=== PATIENT | female | born 1975 | race Caucasian/White ===

== ENCOUNTER 2022-01-30 16:10 | Emergency (ER) | payer BC, SELFPAY ==
--- NOTE | ~2022-01-30 | US_ITS ---
EXAMINATION: US SOFT TISSUE NECK CLINICAL INFORMATION: Pain below the ear COMPARISON: None TECHNIQUE: Real-time imaging by the rehabilitation services counselor. The patient directs the rehabilitation services counselor behind the ear on the left. The residential designer identifies several structures which likely represents lymph nodes. There is a 2.1 x 0.4 x 1 cm lymph node with a fatty hilum preserved. Another lymph node is seen which is less well depicted due to its depth. Measures 5 x 4 x 6 mm. A fatty hilum is not demonstrated. There is good posterior wall definition. Importantly there is no suspicious fluid collection. US/US soft tiss head and/or neck IMPRESSION: No suspicious fluid collection is seen here. Some nonpathologically enlarged lymph nodes are felt to be present. These may be reactive. Correlation recommended clinically. If further evaluation is warranted consider CT postcontrast
--- NOTE | ~2022-01-30 | CT_ITS ---
EXAMINATION: CT MAXILLOFACIAL WITHOUT CONTRAST CT INNER EAR TEMPORAL BONES WITHOUT CONTRAST CLINICAL INFORMATION: Tenderness of the left mastoid. Left maxillary pain and tenderness. COMPARISON: Soft tissue ultrasound of the left mastoid from 01/30/2022. TECHNIQUE: Multidetector helical imaging of the maxillofacial bones and temporal bones was obtained without intravenous contrast. Generation of oblique axial and coronal reformatted projections. This CT examination was performed using dose optimization techniques as appropriate, variously including the following: *Automated exposure control. *Adjustment of mA and/or kV according to patient size (this includes techniques or standardized protocols for targeted exams where dose is matched to indication/reason for exam; i.e. extremities or head). *Use of iterative reconstruction technique. DLP: 695 mGy-cm FINDINGS: FRONTAL SINUSES AND DRAINAGE PATHWAYS: The frontal sinuses are clear. The frontoethmoidal recesses are patent. MAXILLARY SINUSES AND DRAINAGE PATHWAYS: Mild mucosal thickening of the maxillary sinuses. The maxillary ostia and infundibula are patent. ETHMOID SINUSES: Mild mucosal thickening of the ethmoid air cells. The ethmoid roofs appear symmetric and intact. SPHENOID SINUS AND DRAINAGE PATHWAYS: The sphenoid sinus is clear. The sphenoethmoidal recesses are patent. The carotid canals are normally covered by bone. NASAL PASSAGE: The nasal passages are clear. The osseous nasal septum remains midline. ORBITS: Normal appearance of the osseous orbits. The lamina papyracea are intact. No significant preseptal or retrobulbar edema. Normal appearance of the globes. Normal symmetric appearance of the extraocular musculature. No abnormalities of the intraconal or extraconal adipose tissue. Normal appearance of the optic nerve sheaths. Normal appearance of the lacrimal glands. No orbital fluid collections. No abnormalities of the orbital apices. TEMPOROMANDIBULAR JOINTS: The temporomandibular joints remain well aligned. Normal appearance of the temporomandibular joints. RIGHT TEMPORAL BONE: Moderate subcutaneous edema in the retroauricular soft tissues with an apparent 1 cm lymph node. No discrete fluid collection. The external auditory canal is normal in appearance. The tympanic membrane is normal. The ossicular chain is intact. No soft tissue abnormality within the middle ear. The mastoid antrum and additional mastoid air cells remain well aerated. The sigmoid plate is intact. Normal ossification of the bony labyrinth. Normal appearance of the cochlea, vestibule, and semicircular canals. The vestibular aqueduct is normal. Normal appearance of the labyrinthine, geniculate, tympanic, and mastoid segments of the facial nerve. Normal appearance of the internal auditory canal. The cochlear aperture is normal. Normal appearance of the carotid canal and jugular foramen. LEFT TEMPORAL BONE: Mild subcutaneous edema in the retroauricular soft tissues with an apparent 0.7 cm lymph node. No discrete fluid collection. The external auditory canal is normal in appearance. The tympanic membrane is normal. The ossicular chain is intact. No soft tissue abnormality within the middle ear. The mastoid antrum and additional mastoid air cells remain well aerated. The sigmoid plate is intact. Normal ossification of the bony labyrinth. Normal appearance of the cochlea, vestibule, and semicircular canals. The vestibular aqueduct is normal. Normal appearance of the labyrinthine, geniculate, tympanic, and mastoid segments of the facial nerve. Normal appearance of the internal auditory canal. The cochlear aperture is normal. Normal appearance of the carotid canal and jugular foramen. ADDITIONAL RELEVANT FINDINGS: No evidence of maxillofacial bone fractures. The zygomatic arches remain intact. No nasal bone fracture. No evidence of mandibular or maxillary fracture. No significant maxillary/mandibular periapical disease. Limited evaluation of the intracranial structures without demonstrated significant abnormalities. There is moderate degenerative arthropathy of the atlantooccipital articulations. Advanced degenerative arthropathy of the atlantodental articulation. Fragmented ossified structures beneath the anterior arch of C1. 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 The premaxillary, retromaxillary, pterygopalatine fossa, temporal fossa, and parapharyngeal adipose tissue is maintained. No demonstrated soft tissue abnormalities within the intrinsic tissues of the tongue. CT/CT facial bones wo con IMPRESSION: 1. Mild to moderate retroauricular soft tissue edema and small lymph nodes, more notably on the right than the left. No demonstrated discrete fluid collection. 2. Mild sinonasal mucosal disease. The mastoid air cells and middle ear cavities are largely clear without overt abnormalities of the temporal bones. 3. 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
[2022-01-30 16:14] VITALS: BP 166/83; PULSE 93; RESP 18; TEMP 37; O2SAT 97; BMI 30.2
--- NOTE | 2022-01-30 18:30 | ED.GENADULT ---
HPI - General Adult General Chief complaint: General Medical Stated complaint: neck throat pain diff swallowing Time Seen by Provider: 01/30/22 17:33 Source: patient Mode of arrival: ambulatory Limitations: no limitations History of Present Illness HPI narrative: 38-year-old female presents with left-sided neck pain left ear pain, left facial swelling that started yesterday. Patient woke up yesterday, and thought she had a kink in her left side of her neck, but throughout the day became worse. Today when she woke up and went to swallow she felt like she had a dagger in her neck. Patient states when she swallows she feels like she has a shooting pain into her neck. Patient states the pain in her neck is a 5/10 and when she swallows it is an 8/10. No other upper respiratory symptoms, no runny nose, no cough, no fevers. No vomiting, diarrhea, nausea. Patient had a crown in her right upper molar 4 days ago. Related Data Allergies Allergy/AdvReac Type Severity Reaction Status Date / Time Penicillins Allergy Hives Verified 01/30/22 17:28 Review of Systems Constitutional: Constitutional: Denies body ache(s), Denies chills, Denies fatigue, Denies fever(s), Denies headache(s), Denies malaise and Denies weakness Eyes: Eyes: Denies diplopia ENT: Denies vertigo, Denies dizziness, Reports otalgia, Reports facial pain, Denies headache(s), Denies mouth pain, Reports neck pain, Reports odynophagia, Denies post nasal drip, Denies sinus pain, Reports sinus pressure, Reports sore throat and Denies throat swelling Cardiovascular: Cardiovascular: Denies chest pain, Denies syncope, Denies leg edema, Denies lightheadedness, Denies Loss of Consciousness, Denies palpitations and Denies dyspnea Respiratory: Respiratory: Denies chest congestion, Denies cough and Denies dyspnea Gastrointestinal: Gastrointestinal: Denies abdominal pain, Denies hematochezia, Denies constipation, Denies diarrhea, Denies nausea, Reports odynophagia and Denies vomiting Musculoskeletal: Musculoskeletal: Reports no additional musculoskeletal complaints and Reports neck pain Neurologic: Denies confusion, Denies vertigo, Denies dizziness, Denies syncope, Denies headache(s) and Denies weakness Psychiatric: Psychiatric: Denies anxiety, Denies confusion and Denies depression Endocrine: Endocrine: Denies fatigue and Denies palpitations Allergic/Immunologic: Allergic/Immunologic: Denies throat swelling PMFSH Past Medical History Medical History HTN (hypertension) Hypothyroid Restless leg syndrome Social History Social History Advance Directives: No Advance Directives Information Provided: No Patient : No Physical Exam ED Vital Signs: Vital Signs - 24 hr 01/30/22 16:14 Temperature 98.6 F Pulse Rate 93 Respiratory Rate 18 Blood Pressure 166/83 H Pulse Oximetry 97 BMI result Body Mass Index 30.2 Const General: well developed, alert and awake; No confusion Nutritional Appearance: well nourished Orientation/consciousness: patient oriented x3 and No confusion Limitations: no limitations HENMT Other: Tender over left mastoid Head: Yes normal to inspection, Yes normocephalic and Yes atraumatic Ears: hearing grossly normal bilaterally, external ears normal, TM normal on the right, EAC's normal and TM abnormal bulging on the left, wth effusion serosanguinous on the left and with fluid behind the TM General nose exam: Normal external nose present Face and sinus: No ecchymosis, No erythema, No edema and Yes sinus tenderness (Left maxillary) Mouth: Normal oral and palatal mucosa present and moist mucous membranes Throat: Yes uvula midline, No peritonsillar mass and Yes posterior oropharynx abnormal (Erythema) Eyes Conjunctivae: conjunctivae normal Pupils: Equal, round and reactive pupils present EOM: EOMs intact bilaterally Neck Other: Tender over left parotid gland and left mastoid Neck: Yes full ROM, Yes no meningeal signs, Yes trachea midline, Yes supple and No submandibular swelling Resp Effort & Inspection: normal respiratory effort and able to speak in complete sentences Auscultation: clear to auscultation bilaterally, no crackles, no rales, no rhonchi and no wheezes Cardio Rate: regular rate Rhythm: regular rhythm Heart sounds: S1 normal heart sound present and S2 normal heart sound present GI Inspection: Yes normal to inspection Palpation (GI): Soft to palpation, nontender, no guarding and not rigid Percussion: Yes normal to percussion Auscultation: normal bowel sounds Skin General skin exam: no rashes or lesions noted Neuro General: patient oriented x3, no meningeal signs and No confusion Cranial nerves: Yes Equal, round and reactive pupils present Extrem General: Yes normal to inspection and Yes full ROM Psych Appearance: grossly normal Affect: normal affect Attitude: cooperative Thought process: Normal thought process present Course Course Course Narrative: 46-year-old female who is anxious appearing presents with left-sided neck pain, left-sided facial pain, left ear pain for the last 2 days. No fevers. No other upper respiratory symptoms. Dental work on right side 4 days ago. On exam, patient has no submandibular swelling, floor of mouth is not tender, no trismus, no hot potato voice, no fever, patient has of bulging left TM with an effusion, and mild left-sided facial swelling with left upper maxillary tenderness. Patient is tender over her parotid gland and tender in her left mastoid. Will get COVID, strep, ultrasound carotids, CT soft tissue neck, face, and mastoid. Getting labs. Reevaluation(s) Reevaluation #1: COVID and strep negative labs are negative, pt is not Ultrasound shows lymphadenopathy. Awaiting results of CT face and CT mastoid. Ruling out mastoiditis and sinusitis. Patient has a penicillin allergy but has tolerated cephalosporins in the past. Signed the patient out to Corazon Rodriguez PA-C, pending results of face and mastoid CT Would consider sending patient home on ketorolac as she got an IM injection of ketorolac,, Flexeril, and antibiotics US/US soft tiss head and/or neck IMPRESSION: No suspicious fluid collection is seen here. Some nonpathologically enlarged lymph nodes are felt to be present. These may be reactive. Correlation recommended clinically. If further evaluation is warranted consider CT postcontrast Medical Decision Making Lab Data Result diagrams: 01/30/22 18:29 01/30/22 18:29 Labs: Lab Results 01/30/22 01/30/22 01/30/22 Range/Units 18:29 18:29 18:29 WBC 9.3 (4.8-10.8) X10*3/uL RBC 4.02 L (4.20-5.50) X10*6/uL Hgb 12.4 (12.0-16.0) g/dl Hct 36.7 L (37.0-47.0) % MCV 91.3 (80.0-98.0) fL MCH 30.8 (27.0-33.0) pg MCHC 33.8 (31.0-35.0) g/dl RDW 12.7 (11.0-16.0) % Plt Count 288 (160-400) X10*3/uL MPV 9.9 (9.4-12.3) fL Immature Gran % (Auto) 0.1 (0.0-0.4) % Neut % (Auto) 60.6 (45-73) % Lymph % (Auto) 25.2 (20-40) % [place] % (Auto) 11.3 H (2-11) % Eos % (Auto) 2.4 (0-4) % Baso % (Auto) 0.4 (0-2) % Lymph # (Auto) 2.4 (1.2-4.9) X10*3/uL [place] # (Auto) 1.1 (0.1-1.2) X10*3/uL Eos # (Auto) 0.2 (0.0-0.4) X10*3/uL Baso # (Auto) 0.0 (0.0-0.2) X10*3/uL Abs Immat Gran (auto) 0.01 (0.00-0.03) X10*3/uL Absolute Neuts (auto) 5.7 (2.0-8.3) x10*3/uL Absolute Nucleated RBC 0.000 (0.0-0.012) X10*3/uL Nucleated RBC % (auto) 0.0 (0.0-0.2) /100WBC Sodium 136 (135-145) mmol/L Potassium 4.6 (3.3-5.1) mmol/L Chloride 105 (96-108) mmol/L Carbon Dioxide 25 (22-29) mmol/L Anion Gap 11 L (12-20) BUN 13 (9-16) mg/dL Creatinine 0.73 (0.5-1.4) mg/dL Estim Creat Clear Calc 82.5 Estimated GFR > 60 Random Glucose 87 (60-115) mg/dL Calcium 8.4 (8.4-10.2) mg/dL Total Bilirubin 0.2 (0.0-1.0) mg/dL AST 15 (5-31) U/L ALT 14 (0-31) U/L Alkaline Phosphatase 65 (39-117) U/L Total Protein 6.6 (6.5-8.0) g/dL Albumin 3.8 (3.5-5.0) g/dL Urine Test (NEGATIVE) COVID-19 (SNOW) (Negative) COVID-19 Clin Com S. pyogenes GrpA KARINA Negative (Negative) 01/30/22 01/30/22 Range/Units 18:29 18:44 WBC (4.8-10.8) X10*3/uL RBC (4.20-5.50) X10*6/uL Hgb (12.0-16.0) g/dl Hct (37.0-47.0) % MCV (80.0-98.0) fL MCH (27.0-33.0) pg MCHC (31.0-35.0) g/dl RDW (11.0-16.0) % Plt Count (160-400) X10*3/uL MPV (9.4-12.3) fL Immature Gran % (Auto) (0.0-0.4) % Neut % (Auto) (45-73) % Lymph % (Auto) (20-40) % [place] % (Auto) (2-11) % Eos % (Auto) (0-4) % Baso % (Auto) (0-2) % Lymph # (Auto) (1.2-4.9) X10*3/uL [place] # (Auto) (0.1-1.2) X10*3/uL Eos # (Auto) (0.0-0.4) X10*3/uL Baso # (Auto) (0.0-0.2) X10*3/uL Abs Immat Gran (auto) (0.00-0.03) X10*3/uL Absolute Neuts (auto) (2.0-8.3) x10*3/uL Absolute Nucleated RBC (0.0-0.012) X10*3/uL Nucleated RBC % (auto) (0.0-0.2) /100WBC Sodium (135-145) mmol/L Potassium (3.3-5.1) mmol/L Chloride (96-108) mmol/L Carbon Dioxide (22-29) mmol/L Anion Gap (12-20) BUN (9-16) mg/dL Creatinine (0.5-1.4) mg/dL Estim Creat Clear Calc Estimated GFR Random Glucose (60-115) mg/dL Calcium (8.4-10.2) mg/dL Total Bilirubin (0.0-1.0) mg/dL AST (5-31) U/L ALT (0-31) U/L Alkaline Phosphatase (39-117) U/L Total Protein (6.5-8.0) g/dL Albumin (3.5-5.0) g/dL Urine Test NEGATIVE (NEGATIVE) COVID-19 (SNOW) Negative (Negative) COVID-19 Clin Com See Note S. pyogenes GrpA KARINA (Negative) Discharge Plan Discharge Clinical Impression: Acute otitis media with effusion of left ear Patient Disposition: Still a Patient
[2022-01-30 18:35] LABS: MANUAL DIFF FLAG NO
[2022-01-30] MEDS: oxyCODONE HCl Immed Release 5 MG TABLET PO (18:42)
[2022-01-30 18:50] LABS: Basophils Percent Auto 0.4 % (0-2); Eosinophils Absolute Auto 0.2 X10*3/uL (0.0-0.4); Eosinophils Percent Auto 2.4 % (0-4); Hematocrit 36.7 % (37.0-47.0); Hemoglobin 12.4 g/dl (12.0-16.0); Imm Gran Abs Auto 0.01 X10*3/uL (0.00-0.03); Imm Gran Pct Auto 0.1 % (0.0-0.4); Lymphocytes Absolute Auto 2.4 X10*3/uL (1.2-4.9); Lymphocytes Percent Auto 25.2 % (20-40); Mean Corpuscular HGB Conc 33.8 g/dl (31.0-35.0); Mean Corpuscular Hemoglobin 30.8 pg (27.0-33.0); Mean Corpuscular Volume 91.3 fL (80.0-98.0); Mean Platelet Volume 9.9 fL (9.4-12.3); Monocytes Absolute Auto 1.1 X10*3/uL (0.1-1.2); Monocytes Percent Auto 11.3 % (2-11); Neutrophils Absolute Auto 5.7 x10*3/uL (2.0-8.3); Neutrophils Percent Auto 60.6 % (45-73); Platelet Count 288 X10*3/uL (160-400); Red Blood Count 4.02 X10*6/uL (4.20-5.50); Red Cell Distribution Width 12.7 % (11.0-16.0); White Blood Count 9.3 X10*3/uL (4.8-10.8)
[2022-01-30 18:54] LABS: COVID-19 Test Negative (Negative); IDNOW Serial# 16C4AD1C; Strep A Nucleic Acid Negative (Negative)
[2022-01-30 18:58] LABS: Alanine Aminotransferase 14 U/L (0-31); Albumin Level 3.8 g/dL (3.5-5.0); Alkaline Phosphatase 65 U/L (39-117); Anion Gap 11 (12-20); Aspartate Amino Transferase 15 U/L (5-31); Bilirubin Total 0.2 mg/dL (0.0-1.0); Blood Urea Nitrogen 13 mg/dL (9-16); Calcium 8.4 mg/dL (8.4-10.2); Carbon Dioxide 25 mmol/L (22-29); Chloride 105 mmol/L (96-108); Creatinine Clr Calc Pharmacy 82.5; Estimated Glomerular Filt Rate > 60; Glucose Random 87 mg/dL (60-115); Potassium 4.6 mmol/L (3.3-5.1); Sodium 136 mmol/L (135-145); Total Protein 6.6 g/dL (6.5-8.0)
[2022-01-30 19:19] LABS: UPreg QC Valid YES; Urine Pregnancy NEGATIVE (NEGATIVE)
[2022-01-30] MEDS: Cyclobenzaprine HCl 10 MG TABLET PO (19:39)
[2022-01-30] MEDS: Ketorolac Tromethamine 30 MG/ML VIAL IM (19:39)
[2022-01-30] MEDS: Clindamycin HCL 150 MG CAPSULE 450 MG PO (22:17)
[2022-01-30] MEDS: Azithromycin 500 MG TABLET PO (22:17)
== END 2022-01-30 22:46 | disposition home or self-care (01) ==
PROVIDERS: Physician Assistant; Emergency Provider Internal Medicine
DX: H66.92 Otitis media, unspecified, left ear (principal); R68.84 Jaw pain; I10 Essential (primary) hypertension; Z88.0 Allergy status to penicillin; Z20.822 Contact with and (suspected) exposure to COVID-19
CPT/HCPCS: 70481; 70486; 76536; 80053; 81025; 85025; 87635; 87651; 96372; 99284; J1885